=== PATIENT | female | born 1950 | race Caucasian/White ===

== ENCOUNTER 2018-01-31 20:01 | Inpatient (IN) ==
--- NOTE | 2018-01-31 20:43 | Emergency Department Note ---
Disposition Clinical Impression: Palpitations, Atrial fibrillation with rapid ventricular response Disposition: Admitted As Inpatient Condition: Good Time of Disposition: 22:21 General Adult HPI - General Chief complaint: ED Arrhythmia/Palpitations Stated complaint: heart palpatations, high heart rate Time Seen by Provider: 01/31/18 20:21 Source: patient Mode of arrival: ambulatory Limitations: no limitations Nursing Notes Reviewed: Yes Vital Signs Reviewed: Yes - History of Present Illness HPI Narrative: Patient is a 67-year-old female that presents to the emergency department with palpitations. She states that she has had this in the past but has never been able to get to the doctor on has been present. Patient states that while she was in the waiting room she became flushed. Patient denies any chest pain. States that she has only had fluttering and palpitations. Patient denies any nausea but states that she was mildly diaphoretic. Pain Scale: 3 - Related Data Home Medications Medication Instructions Recorded Confirmed Aspirin [Lo-Dose Aspirin EC] 81 mg PO DAILY 01/31/18 01/31/18 Atorvastatin Calcium [Lipitor] 20 mg PO HS 01/31/18 01/31/18 Calcium Carbonate [Calcium] 500 mg PO DAILY 01/31/18 01/31/18 Cod Liver Oil 1 cap PO DAILY 01/31/18 01/31/18 Metoprolol Succinate [Toprol Xl] 25 mg PO DAILY 01/31/18 01/31/18 Allergies Allergy/AdvReac Type Severity Reaction Status Date / Time naproxen [From Aleve] Allergy Hives Verified 01/31/18 22:14 Sulfa (Sulfonamide Allergy See Verified 01/31/18 22:14 Antibiotics) Comments All systems ED: reviewed and negative except as stated. Constitutional: Reports: other (sweating ) Cardiovascular: Reports: palpitations. Denies: chest pain Respiratory: Denies: dyspnea Gastrointestinal: Denies: abdominal pain, nausea, vomiting Past Medical History - Past Medical History Medical history: Reports: hyperlipidemia, hypertension, TIA Psychiatric history: Reports: no psych history - Social History Smoking Status: Never smoker Alcohol use: Reports: rarely Drug use: Reports: none Physical Exam - General Limitations: no limitations General appearance: alert, in no apparent distress - Head Head exam: atraumatic, normocephalic - Eye Eye exam: Present: normal appearance, EOMI - Neck Neck exam: Present: normal inspection, full ROM, trachea midline - Respiratory Respiratory exam: Present: normal lung sounds bilaterally. Absent: respiratory distress, wheezes - Cardiovascular Cardiovascular exam: Present: tachycardia, irregular rhythm, normal heart sounds , +S1, +S2 - Abdominal Exam Abdominal exam: Present: soft, Non-Tender, normal bowel sounds - Neurological Exam Neurological exam: Present: alert, oriented X3 - Psychiatric Psychiatric exam: Present: normal affect, normal mood - Skin Skin exam: Present: warm, dry, intact Course - Reevaluation(s) Reevaluation #1: Upon reevaluation of the patient she states that she is feeling better but still occasionally feeling palpitations. Diltiazem has been increased to 10. Time: 22:02 Vital Signs Temperature 98.2 F 01/31/18 20:14 Pulse Rate 119 01/31/18 20:14 Respiratory Rate 16 01/31/18 20:14 Blood Pressure 167/119 01/31/18 20:14 O2 Sat by Pulse Oximetry 96 01/31/18 20:14 Temperature 97.8 F 02/01/18 03:41 Pulse Rate 63 02/01/18 05:00 Respiratory Rate 16 02/01/18 03:41 Blood Pressure 91/56 02/01/18 05:00 O2 Sat by Pulse Oximetry 95 02/01/18 03:41 Oxygen Delivery Oxygen Delivery Room Air Medical Decision Making - [facility] Narrative Medical decision making narrative: Patient was patient presenting with palpitations and states that she has never been diagnosed with age fibrillation in the past. We will obtain a CBC, BMP, troponin and chest x-ray and EKG. We will also obtain a TSH. The troponin was negative. Chest x-ray showed no acute findings. EKG showed age fibrillation with rapid ventricular response. The patient was given a bolus of diltiazem and a Lovenox injection. Patient was also then started on a diltiazem drip. Based on this being new onset atrial fibrillation with RVR feel that is necessary for the patient be admitted to the hospital for further evaluation and management. I spoke with the patient and she was in agreement with being admitted to the hospital. I called and spoke with the admitting hospitalist Dr. Trejo and he has accepted the patient to his service. The patient be admitted to the hospital this time for further evaluation and management. - Medical Records Medical records reviewed: Yes I reviewed the patient's medical records. - Lab Data Lab results reviewed: Yes I reviewed the patient's lab results. Result diagrams: 01/31/18 20:36 01/31/18 20:36 Lab Results 01/31/18 01/31/18 01/31/18 Range/Units 20:36 20:36 20:36 WBC 9.9 (4.3-11.1) K/mcL RBC 5.21 H (3.82-4.97) M/mcL Hgb 15.6 H (11.5-15.4) g/dL Hct 44.9 (35.3-44.9) % MCV 86.2 (83.0-100.0) fL MCH 29.9 (28.0-33.3) pg MCHC 34.7 (31.6-35.5) g/dL RDW 13.3 (11.5-14.5) % Plt Count 353 (140-400) K/mcL MPV 10.1 (9.4-12.4) fL Immature Gran % 0.2 (0-4) % Seg Neutrophils % 51.8 % Lymphocytes % 29.0 % Monocytes % 13.5 % Eosinophils % 4.8 % Basophils % 0.7 % Neutrophils # 5.1 (1.6-8.9) K/mcL Lymphocytes # 2.9 (0.6-4.6) K/mcL Monocytes # 1.3 (0.0-1.3) K/mcL Eosinophils # 0.5 (0.0-0.6) K/mcL Basophils # 0.1 (0.0-0.2) K/mcL PT 10.5 (9.4-12.1) Seconds INR 1.0 APTT 28.8 (26.0-36.0) Seconds Sodium 139 (136-145) mEq/L Potassium 3.7 (3.5-5.1) mEq/L Chloride 107 (98-107) mEq/L Carbon Dioxide 24 (23-29) mEq/L BUN 19 (8-23) mg/dL Creatinine 0.81 (0.60-1.20) mg/dL Est GFR ( Amer) > 60 (> 60) Est GFR (Non-Af Amer) > 60 (> 60) BUN/Creatinine Ratio 23 (6-26) Glucose 110 H (70-105) mg/dL Calculated Osmolality 291 (280-300) Calcium 9.8 (8.6-10.3) mg/dL Troponin I < 0.03 (< 0.04) ng/mL TSH 5.577 (0.340-5.600) mcIU/mL Urine Color (Yellow) Urine Clarity (Clear) Urine pH (5.0-8.0) pH Units Ur Specific [place] (1.010-1.025) Urine Protein (Neg-Trace) mg/dL Urine Glucose (UA) (Normal) mg/dL Urine Ketones (Negative) mg/dL Urine Blood (Negative) Urine Nitrite (Negative) Urine Bilirubin (Negative) Urine Urobilinogen (Normal) mg/dL Ur Leukocyte Esterase (Negative) Ur Culture Indicated? (NO) 01/31/18 Range/Units 21:00 WBC (4.3-11.1) K/mcL RBC (3.82-4.97) M/mcL Hgb (11.5-15.4) g/dL Hct (35.3-44.9) % MCV (83.0-100.0) fL MCH (28.0-33.3) pg MCHC (31.6-35.5) g/dL RDW (11.5-14.5) % Plt Count (140-400) K/mcL MPV (9.4-12.4) fL Immature Gran % (0-4) % Seg Neutrophils % % Lymphocytes % % Monocytes % % Eosinophils % % Basophils % % Neutrophils # (1.6-8.9) K/mcL Lymphocytes # (0.6-4.6) K/mcL Monocytes # (0.0-1.3) K/mcL Eosinophils # (0.0-0.6) K/mcL Basophils # (0.0-0.2) K/mcL PT (9.4-12.1) Seconds INR APTT (26.0-36.0) Seconds Sodium (136-145) mEq/L Potassium (3.5-5.1) mEq/L Chloride (98-107) mEq/L Carbon Dioxide (23-29) mEq/L BUN (8-23) mg/dL Creatinine (0.60-1.20) mg/dL Est GFR ( Amer) (> 60) Est GFR (Non-Af Amer) (> 60) BUN/Creatinine Ratio (6-26) Glucose (70-105) mg/dL Calculated Osmolality (280-300) Calcium (8.6-10.3) mg/dL Troponin I (< 0.04) ng/mL TSH (0.340-5.600) mcIU/mL Urine Color Yellow (Yellow) Urine Clarity Clear (Clear) Urine pH 7.0 (5.0-8.0) pH Units Ur Specific [place] 1.011 (1.010-1.025) Urine Protein Negative (Neg-Trace) mg/dL Urine Glucose (UA) Normal (Normal) mg/dL Urine Ketones Negative (Negative) mg/dL Urine Blood Negative (Negative) Urine Nitrite Negative (Negative) Urine Bilirubin Negative (Negative) Urine Urobilinogen Normal (Normal) mg/dL Ur Leukocyte Esterase Negative (Negative) Ur Culture Indicated? NO (NO) - Radiology Data Radiology results reviewed: Yes I reviewed the patient's radiology results. Chest X-Ray 01/31/18 20:18 IMPRESSION: No acute airspace disease identified. Calcified atheromatous plaque in sequela of old granulomatous disease. D/ / Krishan Rincon / Krishan Rincon Interpreting Provider: Krishan Rincon - EKG Data EKG #1 EKG attestation: Yes I reviewed and interpreted this EKG. EKG results narrative: EKG shows atrial fibrillation with rapid ventricular response. QRS duration of 83, QTC of 296. No evidence of STEMI on EKG. Attestation Statement - Attestation Attestation: I examined this patient and my medical decision-making was reviewed with the Resident Physician. I agree with the documented findings, disposition and treatment plan as described except to the extent set forth below. A. fib with rapid ventricular response. Hemodynamically stable. Responded to Cardizem bolus and drip. Anticoagulation with Lovenox. We will admit for further management cardiac consultation. I spent greater than 35 minutes of critical care time resuscitating this acutely ill patient suffering from A. fib with rapid ventricular response. This was excluding billable procedures.
[2018-01-31 20:52] LABS: Basophils # 0.1 K/mcL (0.0-0.2); Basophils % 0.7 %; Eosinophils # 0.5 K/mcL (0.0-0.6); Eosinophils % 4.8 %; Hematocrit 44.9 % (35.3-44.9); Hemoglobin 15.6 g/dL (11.5-15.4); Immature Granulocytes % 0.2 % (0-4); Lymphocytes # 2.9 K/mcL (0.6-4.6); Mean Corpuscular HGB Conc 34.7 g/dL (31.6-35.5); Mean Corpuscular Hemoglobin 29.9 pg (28.0-33.3); Mean Corpuscular Volume 86.2 fL (83.0-100.0); Mean Platelet Volume 10.1 fL (9.4-12.4); Monocytes # 1.3 K/mcL (0.0-1.3); Monocytes % 13.5 %; Neutrophils # 5.1 K/mcL (1.6-8.9); Platelet Count 353 K/mcL (140-400); Red Blood Count 5.21 M/mcL (3.82-4.97); Red Cell Distribution Width 13.3 % (11.5-14.5); Segmented Neutrophils % 51.8 %
[2018-01-31 21:11] LABS: Troponin I < 0.03 ng/mL (< 0.04)
[2018-01-31 21:13] LABS: Bilirubin,Urine Negative (Negative); Blood,Urine Negative (Negative); Clarity,Urine Clear (Clear); Color,Urine Yellow (Yellow); Glucose,Urine (UA) Normal (Normal); Ketones,Urine Negative (Negative); Leukocyte Esterase,Urine Negative (Negative); Nitrite,Urine Negative (Negative); Protein,Urine Negative (Neg-Trace); Specific Gravity,Urine 1.011 (1.010-1.025); Urobilinogen,Urine Normal (Normal)
[2018-01-31 21:14] LABS: Prothrombin Time 10.5 Seconds (9.4-12.1)
[2018-01-31] MEDS ORDERED: *HR* Enoxaparin 80 MG/0.8 ML SYRINGE SQ STA (21:14)
[2018-01-31 21:17] LABS: Activated Partial Thrombo Time 28.8 Seconds (26.0-36.0)
[2018-01-31 21:35] LABS: BUN/Creatinine Ratio 23 (6-26); Blood Urea Nitrogen 19 mg/dL (8-23); Calcium 9.8 mg/dL (8.6-10.3); Carbon Dioxide 24 mEq/L (23-29); Chloride 107 mEq/L (98-107); Glucose 110 mg/dL (70-105); Potassium 3.7 mEq/L (3.5-5.1); Thyroid Stimulating Hormone 5.577 mcIU/mL (0.340-5.600); eGFR For African Americans > 60 (> 60); eGFR For Non-African Americans > 60 (> 60)
[2018-01-31 21:39] LABS: Osmolality,Calculated 291 (280-300)
[2018-01-31 21:41] LABS: Sodium 139 mEq/L (136-145)
[2018-01-31] MEDS ORDERED: Naloxone 0.4 MG/ML INJ IVP PRN (23:09)
--- NOTE | 2018-01-31 23:11 | Internal Med History&Physical ---
Date of Encounter: 01/31/18 Time of Encounter: 23:10 Internal Medicine - H&P: HPI Chief complaint: Palpitations Admitted From: Emergency Dept Plans for Post Hospital Care: Home History of present illness: Ms. Roman is a 67 year old female history of hypertension, TIA, HLD who presents with palpitations. Patient also reports "not feeling herself" and lethargic. She says she has been dealing with palpitations for the last 2 years or so. She will was suspected that she has A. fib however was never captured. She went to her primary care physician multiple times and EKGs never showed a. She usually gets palpitations and it would go away on its own within an hour or 2. She usually sleeps it off. This time around she started having palpitations are not 4:30 PM. She went to sleep and woke up and continued to have the palpitations. She went to the ED where she was noted to be in A. fib with a rate of 170. She was given IV Cardizem bolus and put on a Cardizem drip. The patient earlier this year was diagnosed with a TIA by her primary care physician. She had TIA workup by him including echocardiogram and carotid ultrasounds which were unremarkable. She was diagnosed with hypertension a week or 2 ago and put on metoprolol. He denies any fever, chills, nausea, vomiting, chest pain, abdominal pain, diarrhea, constipation, urinary symptoms, or neurological symptoms. In the ED the patient's workup was unremarkable in terms of labs including a normal TSH. Past Med Surg Social Fam HX - Past Medical History Medical history: hyperlipidemia, hypertension, TIA Psychiatric history: no psych history - Social History Smoking Status: Never smoker Alcohol use: rarely Drug use: none Internal Medicine - H&P: Meds Aspirin [Lo-Dose Aspirin EC] 81 mg PO DAILY 01/31/18 [History] Atorvastatin Calcium [Lipitor] 20 mg PO HS 01/31/18 [History] Calcium Carbonate [Calcium] 500 mg PO DAILY 01/31/18 [History] Cod Liver Oil 1 cap PO DAILY 01/31/18 [History] Metoprolol Succinate [Toprol Xl] 25 mg PO DAILY 01/31/18 [History] 3 Allergy/AdvReac Type Severity Reaction Status Date / Time naproxen [From Aleve] Allergy Hives Verified 01/31/18 22:14 Sulfa (Sulfonamide Allergy See Verified 01/31/18 22:14 Antibiotics) Comments All Systems PM: A 10-system review of systems was performed and is negative for pertinent findings except as documented above in the HPI. Review of systems: All systems reviewed are negative except for as mentioned above - Constitutional Vitals: Temp Pulse Resp BP Pulse Ox 98.2 F 126 14 104/86 95 01/31/18 20:14 01/31/18 22:32 01/31/18 22:32 01/31/18 22:32 01/31/18 22:32 Exam: GEN: NAD HEENT: AT, NC, No cyanosis, oral mucosa is moist, No JVD Lymphatics: No lymphadenoapthy Eyes: Extrocular muscles intact, anicteric CVS: Tachycardia, irregular. S1, S2, No m/r/g RESP: CTAB ABD: Soft, NT, ND, +BS EXT: No edema, No rashes, 2+ DP NEURO: Nonfocal, CN II-XII intact, No focal motor or sensory deficits Psych: Cooperative, Not anxious or depressed Internal Med - H&P Results - Labs CBC & Chem 7: 01/31/18 20:36 01/31/18 20:36 Labs: Short CBC 01/31/18 Range/Units 20:36 WBC 9.9 (4.3-11.1) K/mcL Hgb 15.6 H (11.5-15.4) g/dL Hct 44.9 (35.3-44.9) % Plt Count 353 (140-400) K/mcL Neutrophils # 5.1 (1.6-8.9) K/mcL BMP 01/31/18 20:36 Sodium 139 Potassium 3.7 Chloride 107 Carbon Dioxide 24 BUN 19 Creatinine 0.81 Glucose 110 H Calcium 9.8 Cardiac Enzymes 01/31/18 Range/Units 20:36 Troponin I < 0.03 (< 0.04) ng/mL Urine 01/31/18 Range/Units 21:00 Urine Color Yellow (Yellow) Urine Clarity Clear (Clear) Urine pH 7.0 (5.0-8.0) pH Units Ur Specific [place] 1.011 (1.010-1.025) Urine Protein Negative (Neg-Trace) mg/dL Urine Glucose (UA) Normal (Normal) mg/dL - Impressions ITS Impressions Chest X-Ray 01/31/18 20:18 IMPRESSION: No acute airspace disease identified. Calcified atheromatous plaque in sequela of old granulomatous disease. D/ / Krishan Rincon / Krishan Rincon Interpreting Provider: Krishan Rincon - Assessment and plan (1) Atrial fibrillation with rapid ventricular response Current Visit: Yes Status: Acute Assessment and plan: Admit to tele. Cardizem drip. BP is borderline. If gets lower, will start amio drip. Hold home dose metoprolol for now till BP improves. I anticipate this will be the case once we have better rate control. 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 She has many friends on Xarelto and would like to be on it if possible. Given a dose of weight based lovenox in the ED. Will start Xarelto. TSH is normal. check mag level. Recent echo done. (2) DVT prophylaxis Current Visit: Yes Status: Acute Assessment and plan: Given lovenox in the ED. Started Xarelto - Time Spent With Patient Total time spent is greater than 50% in coordination of care (as documented) at patient's floor/unit and/or counseling patient:
[2018-02-01] MEDS: Acetaminophen 325 MG TABLET PO PRN ×2 (00:44→11:18)
[2018-02-01] MEDS ORDERED: Metoprolol XL (24 HR) Succ 25 MG TAB.ER.24H PO SCH (06:30)
[2018-02-01 08:01] LABS: Magnesium 2.1 mg/dL (1.6-2.6)
[2018-02-01] MEDS ORDERED: Aspirin Enteric Coated 81 MG Tablet PO SCH (09:00)
[2018-02-01] MEDS ORDERED: *HR* Metoprolol 5 MG/5 ML VIAL IVP PRN (10:56)
[2018-02-01] MEDS ORDERED: *HR* Rivaroxaban 10 MG TABLET PO SCH ×2 (11:00→17:00)
--- NOTE | 2018-02-01 11:01 | Internal Med Progress Note ---
Date of Encounter: 02/01/18 Time of Encounter: 10:57 - Assessment and plan (1) Atrial fibrillation with rapid ventricular response Current Visit: Yes Status: Acute Assessment and plan: New onset/documented A fib with RVR (paroxysmal A fib) Symptomatic on and off for 2 years . Cardizem drip dropped her BP Increase toprol to 50 mg daily, lopressor PRN COnsider amio drip. 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 [id number] :4 ( TIA, Female, 67 years) Chose Xarelto TSH is normal. Recent echo done: Showed an ejection fraction of 60-65% and mild diastolic dysfunction (2) History of TIA (transient ischemic attack) Current Visit: Yes Status: Acute Assessment and plan: Stop aspirin since the patient is to be on xarelto (3) History of UTI Current Visit: Yes Status: Acute Assessment and plan: Recently treated with nitrofurantoin, asymptomatic at the moment (4) HLD (hyperlipidemia) Current Visit: Yes Status: Acute Qualifiers: Hyperlipidemia type: unspecified Qualified Code(s): E78.5 - Hyperlipidemia , unspecified - Time Spent With Patient Total time spent is greater than 50% in coordination of care (as documented) at patient's floor/unit and/or counseling patient: - Subjective Interval history: no further palpitations, no CP or OSB, no fever or dysuria. No cough - Constitutional Vitals: Temp Pulse Resp BP Pulse Ox 98.2 F 67 16 102/66 94 02/01/18 06:49 02/01/18 07:42 02/01/18 06:49 02/01/18 06:49 02/01/18 06:49 General appearance: Present: A&O X 3 - Head Head exam: Present: atraumatic, normocephalic - Eye Eye exam: Present: PERRL, conjuntiva pink, sclera anicteric Pupils: Present: PERRL - Neck Neck exam general surgery: Present: supple, trachea midline. Absent: lymphadenopathy - Respiratory Respiratory exam: Present: CTAB. Absent: accessory muscle use, rales, rhonchi, wheezes - Cardiovascular Cardiovascular exam: Present: RRR, +S1, +S2. Absent: diastolic murmur, gallop, rubs, systolic murmur - GI/Abdominal GI/Abdominal exam: Present: normal bowel sounds, soft, no peritoneal signs. Absent: distended, tenderness - Extremities Exam Extremities exam: Present: warm, radial pulses palpable and symmetrical. Absent : calf tenderness, cyanotic, pedal edema - Neurological Exam Neurological exam: Present: CN II-XII intact, oriented X3, no focal deficits. Absent: pronater drift, facial droop, speech deficit - Skin Skin exam: Present: dry, intact Internal Medicine: Result - Labs CBC & Chem 7: 01/31/18 20:36 01/31/18 20:36 - ABG Interpretation ABG results: PT/INR, D-dimer PT 10.5 Seconds (9.4-12.1) 01/31/18 20:36 Consult Discharge Plan - Plan Referrals: Marquita Moser CNP [Primary Care Provider] -
[2018-02-01] MEDS: Metoprolol XL (24 HR) Succ 50 MG TAB.ER.24H PO SCH (11:08)
--- NOTE | 2018-02-01 12:46 | Electrocardiograph Report ---
[facility] Test Date: 2018-01-31 Pat Name: Sarahi Roman Department: 104 Room: 2N08 Gender: F Phlebotomy Support Tech: CARLOS A : 1950 Requested By: Randall Rodrigues Order Number: [id number] Reading MD: Ron Silverio MD Measurements Intervals [place] Rate: 172 P: DC: 0 QRS: 10 QRSD: 83 T: 44 QT: 203 QTc: 296 Interpretive Statements ATRIAL FIBRILLATION WITH RAPID VENTRICULAR RESPONSE NONSPECIFIC ST & T-WAVE ABNORMALITY ABNORMAL RHYTHM ECG Electronically Signed On 02-01-2018 12:44:58 EDT by Ron Silverio MD
[2018-02-02 06:47] VITALS: BP 120/63
[2018-02-02] MEDS: Metoprolol XL (24 HR) Succ 50 MG TAB.ER.24H PO SCH (08:22)
--- NOTE | 2018-02-02 08:26 | Discharge Summary ---
- NOTES TO OUTPATIENT PROVIDER Notes to Outpatient Provider: Follow-up with primary care physician within the next 7 days. Follow-up with cardiology within the next 7 days. Increase Toprol to 50 mg daily, continue Xarelto. Stop aspirin Date of Encounter: 02/02/18 Time of Encounter: 08:22 - Discharge Diagnosis (1) Atrial fibrillation with rapid ventricular response Priority: Primary Status: Acute Assessment and Plan: New onset/documented A fib with RVR (paroxysmal A fib) (2) History of TIA (transient ischemic attack) Priority: Secondary Status: Acute (3) History of UTI Priority: Secondary Status: Acute (4) HLD (hyperlipidemia) Priority: Secondary Status: Acute Qualifiers: Hyperlipidemia type: unspecified Qualified Code(s): E78.5 - Hyperlipidemia , unspecified Hospital course: Ms. Roman is a 67 year old female with history of history of hypertension, TIA , HLD who presented with palpitations. Patient also reported "not feeling herself" and feeling lethargic. She said she has been dealing with palpitations for the last 2 years. She suspected that she had A. fib however was never captured. She went to her primary care physician multiple times and EKGs never showed it. She usually gets palpitations and it would go away on its own within an hour or 2. She usually sleeps it off. She went to sleep, woke up and continued to have the palpitations. She went to the ED where she was noted to be in A. fib with a rate of 170. She was given IV Cardizem bolus and put on a Cardizem drip. The patient earlier this year was diagnosed with a TIA by her primary care physician. She had TIA workup by him including echocardiogram and carotid ultrasounds which were unremarkable. She was diagnosed with hypertension a week or 2 ago and put on metoprolol. He denies any fever, chills, nausea, vomiting, chest pain, abdominal pain, diarrhea, constipation, urinary symptoms, or neurological symptoms. In the ED the patient's workup was unremarkable in terms of labs including a normal TSH. 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 [id number] :4 ( TIA, Female, 67 years) Anticoagulation therapy offered, risks explained between new anticoagulation agents and Coumadin, the patient decided to choose Xarelto Recent echo done: Showed an ejection fraction of 60-65% and mild diastolic dysfunction - Time Spent with Patient Total time spent providing and/or coordinating discharge services: Greater than 30 minutes (40 min) - Discharge Medications Prescriptions: Metoprolol XL (24 HR) Succ [Toprol Xl] 50 mg PO DAILY #30 tab.er.24h Rivaroxaban [Xarelto] 20 mg PO DAILY@1700 #30 tablet Home Medications: Atorvastatin Calcium [Lipitor] 20 mg PO HS 01/31/18 [History] Calcium Carbonate [Calcium] 500 mg PO DAILY 01/31/18 [History] Cod Liver Oil 1 cap PO DAILY 01/31/18 [History] Metoprolol XL (24 HR) Succ [Toprol Xl] 50 mg PO DAILY #30 tab.er.24h 02/02/18 [ Rx] Rivaroxaban [Xarelto] 20 mg PO DAILY@1700 #30 tablet 02/02/18 [Rx] Allergies/Adverse Reactions: 3 Allergy/AdvReac Type Severity Reaction Status Date / Time naproxen [From Aleve] Allergy Hives Verified 01/31/18 22:14 Sulfa (Sulfonamide Allergy See Verified 01/31/18 22:14 Antibiotics) Comments Date of admission: 01/31/18 23:17 Primary care physician: Marquita Moser CNP Consults: 02/01/18 00:35 Consult to Pastoral Services [CONS] Routine Comment: - Constitutional Vitals: Temp Pulse Resp BP Pulse Ox 97.9 F 65 16 120/63 94 02/02/18 06:46 02/02/18 06:46 02/02/18 06:46 02/02/18 06:46 02/02/18 06:46 General appearance: Present: A&O X 3 - Head Head exam: Present: atraumatic, normocephalic - Eye Eye exam: Present: PERRL, conjuntiva pink, sclera anicteric Pupils: Present: PERRL - Neck Neck exam general surgery: Present: supple, trachea midline. Absent: lymphadenopathy - Respiratory Respiratory exam: Present: CTAB. Absent: accessory muscle use, rales, rhonchi, wheezes - Cardiovascular Cardiovascular exam: Present: RRR, +S1, +S2. Absent: diastolic murmur, gallop, rubs, systolic murmur - GI/Abdominal GI/Abdominal exam: Present: normal bowel sounds, soft, no peritoneal signs. Absent: distended, tenderness - Extremities Exam Extremities exam: Present: warm, radial pulses palpable and symmetrical. Absent : calf tenderness, cyanotic, pedal edema - Neurological Exam Neurological exam: Present: CN II-XII intact, oriented X3, no focal deficits. Absent: pronater drift, facial droop, speech deficit - Skin Skin exam: Present: dry, intact - Patient Status Disposition: Home, Self-Care Condition: Good Overall status at discharge: patient is back to baseline - Discharge Instructions Follow Up With: Marquita Moser, [employer] [Primary Care Provider] - - Diet and Activity Activity: resume usual activities as tolerated Diet: low fat, low cholesterol
[2018-02-02] MEDS ORDERED: *HR* Rivaroxaban 10 MG TABLET PO SCH (17:00)
== END 2018-02-02 09:50 | disposition home or self-care (01) | DRG 310 ==
LOC: EMEROO 20:01 → 2NNU 20:01 → SUATTDRO 23:17 → 2NNU 02-01 00:11
PROVIDERS: ADMIT Internal Medicine; ATTEND Internal Medicine